=== PATIENT | female | born 1985 | race Two or more races ===

== ENCOUNTER 2021-06-22 19:03 | Inpatient (IN) | payer MEDICAID, OTHER ==
[~2021-06-22] VITALS: Ht 160 cm; Wt 98.1 kg
[2021-06-22] MEDS ORDERED: CATHFLO ACTIVASE (ALTEPLASE) 2 MG VIAL IV ONE ×2 (19:25→19:30)
[2021-06-22 20:09] LABS: Basophils # (auto) 0 10 ^3/uL (0-0.2); Basophils % (auto) 0.5 % (0.0-2.0); Eosinophils # (auto) 0.5 10 ^3/uL (0-0.8); Eosinophils % (auto) 5.5 % (0.0-7.0); Hematocrit 35.1 % (36.0-46.0); Hemoglobin 11.7 g/dL (12.2-16.2); Lymphocytes # (auto) 0.9 10 ^3/uL (0.4-5.4); Lymphocytes % (auto) 9.2 % (10.0-50.0); Mean Corpuscular Hemoglobin 27.9 pg (28.0-32.0); Mean Corpuscular Hgb Conc. 33.2 g/dL (32.0-36.0); Mean Corpuscular Volume 84.1 fL (80.0-100.0); Monocytes # (auto) 1.1 10 ^3/uL (0-1.3); Monocytes % (auto) 11.7 % (0.0-12.0); Neutrophils % (auto) 73.1 % (37.0-80.0); Nucleated Red Blood Cells % 0.1 %; Red Blood Cells 4.18 10^6/uL (4.0-5.20); Red Cell Distribution Width 15.1 % (11.8-14.3); White Blood Cell 9.6 10^3/uL (4.4-10.8)
[2021-06-22 20:15] LABS: Urine Bacteria NONE SEEN /hpf (None Seen); Urine Blood Negative /uL (Negative); Urine Hyaline Cast FEW /lpf (0 - 2); Urine Specific Gravity 1.016 (1.001-1.035); Urine WBC 42 /hpf (0 - 5)
[2021-06-22] MEDS ORDERED: GLUCAGON HYDROCHLORIDE (RDNA) 1 MG VIAL IV ONE (20:15)
[2021-06-22 20:23] LABS: INR 0.99 (0.9-1.15); Partial Thromboplastin Time 23.6 sec (23.6-33.0)
[2021-06-22 20:26] LABS: Albumin 4.1 g/dL (3.4-5.0); Calcium 8.7 mg/dL (8.5-10.1); Magnesium 3.2 mg/dL (1.6-2.6); Potassium 4.2 mmol/L (3.5-5.1)
[2021-06-22 20:27] LABS: Amphetamine Screen, Urine NEGATIVE (NEGATIVE); Barbiturate Scree,Urine NEGATIVE (NEGATIVE); Benzodiazephine Screen, Urine NEGATIVE (NEGATIVE); Cannabinoid Screen, Urine NEGATIVE (NEGATIVE); Cocaine Screen, Urine NEGATIVE (NEGATIVE); Opiate Scree,Urine POSITIVE (NEGATIVE); Phencyclidine Screen, Urine NEGATIVE (NEGATIVE)
[2021-06-22] MEDS ORDERED: FLUMAZENIL 0.1 MG/ML INJ 10ML MDV IV ONE (20:30)
[2021-06-22] MEDS ORDERED: cefTRIAXone 1GM/50ML D5W 50 ML IV ONE (20:30)
[2021-06-22 20:32] LABS: BUN/Creatinine Ratio 20.6; Bilirubin, Total 0.3 mg/dL (0.2-1.0); Total Protein 8.8 g/dL (6.4-8.2)
[2021-06-22] MEDS ORDERED: IOHEXOL 350 MG/ML 100ML IJ ONE (21:13)
[2021-06-22] MEDS ORDERED: HEPARIN SODIUM (PORCINE) 5000 UNITS/ML 1ML VIAL IV ONE (22:30)
[2021-06-22] MEDS ORDERED: HEPARIN DRIP/D5W 100UNITS/ML 250 ML IV ONE (22:37)
[2021-06-22] MEDS: HEPARIN DRIP/D5W 100UNITS/ML 250 ML IV SCH (22:40)
[2021-06-23] MEDS ORDERED: SODIUM CHLORIDE 0.9% 1,000 ML IV ONE ×2 (05:15)
[2021-06-23 05:19] LABS: INR 1.06 (0.9-1.15)
[2021-06-23 05:24] LABS: Partial Thromboplastin Time > 139.0 sec (23.6-33.0)
[2021-06-23] MEDS ORDERED: ONDANSETRON HCL 4 MG/2 ML VIAL IV PRN (05:30)
[2021-06-23] MEDS ORDERED: hydrALAZINE HCL 10 MG TAB PO PRN (05:30)
[2021-06-23] MEDS ORDERED: MORPHINE SULFATE INJECTION 2 MG/ML SYRG IV PRN (05:30)
[2021-06-23] MEDS ORDERED: ACETAMINOPHEN 325 MG TAB PO PRN (05:30)
[2021-06-23] MEDS: cefTRIAXone 1GM/50ML D5W 50 ML IV SCH (09:21)
[2021-06-23 13:00] VITALS: BP 160/74
[2021-06-23] MEDS: HYDROcodone-ACET 5/325MG TAB PO PRN ×2 (13:29→20:37)
[2021-06-23] MEDS: HEPARIN DRIP/D5W 100UNITS/ML 250 ML IV SCH ×3 (14:37→22:31)
[2021-06-23 14:54] LABS: INR 1.05 (0.9-1.15); Partial Thromboplastin Time 52.1 sec (23.6-33.0)
[2021-06-23 17:00] VITALS: BP 139/80
[2021-06-23 21:57] LABS: INR 1.05 (0.9-1.15); Partial Thromboplastin Time 37.5 sec (23.6-33.0)
[2021-06-23 21:58] VITALS: BP 164/78
[2021-06-23] MEDS: MORPHINE SULFATE INJECTION 2 MG/ML SYRG IV PRN (22:55)
[2021-06-24] MEDS: HYDROcodone-ACET 5/325MG TAB PO PRN ×2 (04:02→11:26)
[2021-06-24 05:00] VITALS: BP 150/72
[2021-06-24 06:48] LABS: Basophils # (auto) 0 10 ^3/uL (0-0.2); Basophils % (auto) 0.9 % (0.0-2.0); Eosinophils # (auto) 0.2 10 ^3/uL (0-0.8); Eosinophils % (auto) 3.7 % (0.0-7.0); Hemoglobin 11.9 g/dL (12.2-16.2); Lymphocytes % (auto) 19.1 % (10.0-50.0); Mean Corpuscular Hemoglobin 28.4 pg (28.0-32.0); Mean Corpuscular Volume 83.5 fL (80.0-100.0); Monocytes # (auto) 0.7 10 ^3/uL (0-1.3); Monocytes % (auto) 13.2 % (0.0-12.0); Neutrophils # (auto) 3.2 10 ^3/uL (1.6-8.6); Neutrophils % (auto) 63.1 % (37.0-80.0); Nucleated Red Blood Cells % 0.1 %; Red Blood Cells 4.19 10^6/uL (4.0-5.20); Red Cell Distribution Width 15.5 % (11.8-14.3)
[2021-06-24 06:54] LABS: INR 1.05 (0.9-1.15)
[2021-06-24 07:01] LABS: BUN/Creatinine Ratio 21.6; Potassium 3.9 mmol/L (3.5-5.1)
[2021-06-24] MEDS: HEPARIN DRIP/D5W 100UNITS/ML 250 ML IV SCH (07:20)
[2021-06-24 09:00] VITALS: BP 147/74
[2021-06-24] MEDS: cefTRIAXone 1GM/50ML D5W 50 ML IV SCH (09:00)
[2021-06-24 12:34] VITALS: BP 135/74
[2021-06-24 13:46] LABS: INR 1.06 (0.9-1.15); Partial Thromboplastin Time 60.2 sec (23.6-33.0)
[2021-06-24] MEDS: MORPHINE SULFATE INJECTION 2 MG/ML SYRG IV PRN (15:30)
[2021-06-24 16:41] VITALS: BP 149/73
[2021-06-24] MEDS ORDERED: WARFARIN SODIUM 10 MG TAB PO ONE (17:00)
[2021-06-24] MEDS ORDERED: TRAZ300T16 PO (17:47)
[2021-06-24] MEDS ORDERED: diphenhdrAMINE HCL 25 MG CAP PO ONE (19:15)
[2021-06-24 19:43] LABS: INR 1.04 (0.9-1.15); Partial Thromboplastin Time 60.3 sec (23.6-33.0)
[2021-06-24] MEDS ORDERED: MAGNESIUM SULFATE 1GM/100ML 100 ML IV SCH (21:00)
[2021-06-24 22:00] VITALS: BP 148/71
[2021-06-24] MEDS ORDERED: traZODone HCL 50 MG TAB PO SCH ×2 (22:00)
[2021-06-25] MEDS: MORPHINE SULFATE INJECTION 2 MG/ML SYRG IV PRN ×3 (00:37→15:37)
[2021-06-25 01:42] LABS: INR 1.1 (0.9-1.15)
[2021-06-25 02:10] LABS: Partial Thromboplastin Time 70.9 sec (23.6-33.0)
[2021-06-25 05:00] VITALS: BP 118/81
[2021-06-25 05:25] LABS: Basophils # (auto) 0.1 10 ^3/uL (0-0.2); Basophils % (auto) 0.9 % (0.0-2.0); Eosinophils # (auto) 0.2 10 ^3/uL (0-0.8); Eosinophils % (auto) 3.2 % (0.0-7.0); Hematocrit 32.8 % (36.0-46.0); Hemoglobin 11.3 g/dL (12.2-16.2); Lymphocytes % (auto) 16.9 % (10.0-50.0); Mean Corpuscular Hemoglobin 28.8 pg (28.0-32.0); Mean Corpuscular Hgb Conc. 34.5 g/dL (32.0-36.0); Mean Corpuscular Volume 83.4 fL (80.0-100.0); Monocytes # (auto) 0.9 10 ^3/uL (0-1.3); Monocytes % (auto) 14.8 % (0.0-12.0); Neutrophils # (auto) 3.7 10 ^3/uL (1.6-8.6); Neutrophils % (auto) 64.2 % (37.0-80.0); Nucleated Red Blood Cells % 0.1 %; Red Blood Cells 3.93 10^6/uL (4.0-5.20); Red Cell Distribution Width 14.9 % (11.8-14.3); White Blood Cell 5.8 10^3/uL (4.4-10.8)
[2021-06-25] MEDS: HEPARIN DRIP/D5W 100UNITS/ML 250 ML IV SCH (07:05)
[2021-06-25 07:51] LABS: Chloride 105 mmol/L (98-107); Potassium 3.6 mmol/L (3.5-5.1); Sodium 139 mmol/L (136-145)
[2021-06-25 07:52] LABS: Anion Gap 12 (5-15); BUN/Creatinine Ratio 16.4; Blood Urea Nitrogen 11 mg/dL (7-18); Calcium 8.5 mg/dL (8.5-10.1); Carbon Dioxide 22 mmol/L (21-32); GFR African American 129 mL/min; GFR Non-African American 106 mL/min; Glucose 91 mg/dL (74-106)
[2021-06-25] MEDS: cefTRIAXone 1GM/50ML D5W 50 ML IV SCH (08:23)
[2021-06-25 09:29] VITALS: BP 134/69
[2021-06-25] MEDS ORDERED: WARF5TAB71 PO (14:34)
[2021-06-25] MEDS ORDERED: ENO100SY SC (14:34)
[2021-06-25] MEDS ORDERED: AMOX-277 PO (14:34)
[2021-06-25 14:53] VITALS: BP 137/63
[2021-06-25 15:37] VITALS: BP 137/63
[2021-06-25] MEDS ORDERED: WARFARIN SODIUM 10 MG TAB PO ONE (17:00)
[2021-06-25] MEDS ORDERED: WARFARIN SODIUM 2.5 MG TAB PO ONE (17:00)
== END 2021-06-25 15:38 | disposition home health service (06) | DRG 52 ==
LOC: EDBD 19:03 → ER 19:06 → TELE 06-23 09:27 → TELE-CENTR 06-23 12:52
PROVIDERS: ADMIT Nurse Practitioner Family; ATTEND Internal Medicine
DX: G93.41 Metabolic encephalopathy (principal); I26.99 Other pulmonary embolism without acute cor pulmonale; E66.01 Morbid (severe) obesity due to excess calories; G89.29 Other chronic pain; J98.11 Atelectasis; K50.90 Crohn's disease, unspecified, without complications; N39.0 Urinary tract infection, site not specified; I10 Essential (primary) hypertension; M54.50 Low back pain, unspecified; Z20.822 Contact with and (suspected) exposure to COVID-19; R00.1 Bradycardia, unspecified; R55 Syncope and collapse; N83.201 Unspecified ovarian cyst, right side; Z80.41 Family history of malignant neoplasm of ovary; Z82.49 Family history of ischemic heart disease and other diseases of the circulatory system; Z82.5 Family history of asthma and other chronic lower respiratory diseases; Z68.33 Body mass index [BMI] 33.0-33.9, adult; Z88.1 Allergy status to other antibiotic agents; Z86.718 Personal history of other venous thrombosis and embolism
CPT/HCPCS: 36415; 36600; 70450; 70551; 71045; 71275; 74176; 80048; 80053; 80307; 81001; 82805; 83605; 83735; 84484; 84702; 85025; 85610; 85730; 86141; 86850; 86900; 86901; 87040; 87086; 87088; 87186; 87426; 93005; 93306; 93970; 96365; 96375; 99291; G0378; J0696

== ENCOUNTER 2021-07-28 15:25 | Inpatient (IN) | payer MEDICAID ==
[~2021-07-28] VITALS: Ht 162.6 cm; Wt 92.0 kg
[~2021-07-28 15:25] MED LIST: AMOX-277 PO; ENO100SY SC; TRAZ300T16 PO; WARF5TAB71 PO
[2021-07-28] MEDS ORDERED: ACETAMINOPHEN 325 MG TAB PO ONE (15:45)
[2021-07-28] MEDS ORDERED: SODIUM CHLORIDE 0.9% 1,000 ML IV ONE (15:45)
[2021-07-28] MEDS ORDERED: NOREPINEPHRINE 8 MG/250ML KIT 250 ML IV SCH ×2 (16:30→18:45)
[2021-07-28] MEDS ORDERED: NOREPINEPHRINE 8 MG/250ML KIT 250 ML IV ONE (16:34)
[2021-07-28 17:01] LABS: Basophils # (auto) 0.1 10 ^3/uL (0-0.2); Basophils % (auto) 1.4 % (0.0-2.0); Eosinophils # (auto) 0 10 ^3/uL (0-0.8); Eosinophils % (auto) 0.5 % (0.0-7.0); Hematocrit 29.3 % (36.0-46.0); Hemoglobin 9.8 g/dL (12.2-16.2); Lymphocytes # (auto) 0.3 10 ^3/uL (0.4-5.4); Lymphocytes % (auto) 3.2 % (10.0-50.0); Mean Corpuscular Hemoglobin 27.3 pg (28.0-32.0); Mean Corpuscular Hgb Conc. 33.3 g/dL (32.0-36.0); Mean Corpuscular Volume 81.9 fL (80.0-100.0); Monocytes # (auto) 1.3 10 ^3/uL (0-1.3); Monocytes % (auto) 13.5 % (0.0-12.0); Neutrophils # (auto) 7.8 10 ^3/uL (1.6-8.6); Neutrophils % (auto) 81.4 % (37.0-80.0); Red Blood Cells 3.58 10^6/uL (4.0-5.20); Red Cell Distribution Width 15.6 % (11.8-14.3); White Blood Cell 9.6 10^3/uL (4.4-10.8)
[2021-07-28] MEDS ORDERED: IOHEXOL 350 MG/ML 100ML IJ ONE (17:06)
[2021-07-28 17:19] LABS: Calcium 8.1 mg/dL (8.5-10.1); Potassium 3.9 mmol/L (3.5-5.1)
[2021-07-28 17:22] LABS: BUN/Creatinine Ratio 12.3
[2021-07-28 17:23] LABS: Albumin 2.9 g/dL (3.4-5.0)
[2021-07-28 17:25] LABS: Bilirubin, Total 1.8 mg/dL (0.2-1.0); Total Protein 6.6 g/dL (6.4-8.2)
[2021-07-28] MEDS ORDERED: MORPHINE SULFATE INJECTION 2 MG/ML SYRG IV PRN (18:30)
[2021-07-28] MEDS ORDERED: NITROGLYCERIN 0.4 MG SL TAB SL PRN (18:30)
[2021-07-28] MEDS ORDERED: ACETAMINOPHEN 325 MG TAB PO PRN (18:30)
[2021-07-28] MEDS ORDERED: VANCOMYCIN PER PHARMACY 0 MG IV SCH (18:30)
[2021-07-28] MEDS ORDERED: VANCOMYCIN 1GM/250ML 250 ML IV ONE (19:00)
[2021-07-28] MEDS ORDERED: CEFTRIAXONE SODIUM 2 GM in D5W 5% 50 ML IV SCH (20:30)
[2021-07-28] MEDS ORDERED: ACYCLOVIR 10MG/KG Q8HR PER RX 0 ML IV SCH (20:30)
[2021-07-28] MEDS ORDERED: DexAMETHasone INJECTION 10 MG in D5W 5% 50 ML IV ONE (21:00)
[2021-07-28] MEDS ORDERED: DexAMETHasone SOD PHOS 10MG/1ML VIAL INJ ONE (21:27)
[2021-07-28] MEDS: SODIUM CHLORIDE 0.9% 1,000 ML IV SCH (22:13)
[2021-07-28] MEDS ORDERED: cefTRIAXone 1GM/50ML D5W 100 ML IV ONE (22:59)
[2021-07-28] MEDS ORDERED: ACYCLOVIR SODIUM (50 MG/ ML) 10 ML VIAL IV ONE (23:01)
[2021-07-28] MEDS: ACYCLOVIR SOD 50MG/ML 500 MG in D5W 5% 100 ML IV SCH (23:40)
[2021-07-28] MEDS: CEFTRIAXONE SODIUM 2 GM in D5W 5% 50 ML IV SCH (23:55)
[2021-07-29 00:05] LABS: INR 5.16 (0.9-1.15)
[2021-07-29] MEDS: MORPHINE SULFATE INJECTION 2 MG/ML SYRG IV PRN ×2 (02:26→08:48)
[2021-07-29] MEDS: SODIUM CHLORIDE 0.9% 1,000 ML IV SCH ×2 (02:30→10:07)
[2021-07-29] MEDS: ACYCLOVIR SOD 50MG/ML 500 MG in D5W 5% 100 ML IV SCH (07:03)
[2021-07-29 07:25] LABS: Basophils # (auto) 0 10 ^3/uL (0-0.2); Basophils % (auto) 0.2 % (0.0-2.0); Eosinophils # (auto) 0 10 ^3/uL (0-0.8); Hematocrit 31.2 % (36.0-46.0); Hemoglobin 10.2 g/dL (12.2-16.2); Lymphocytes # (auto) 0.5 10 ^3/uL (0.4-5.4); Lymphocytes % (auto) 5.2 % (10.0-50.0); Mean Corpuscular Hemoglobin 27.1 pg (28.0-32.0); Mean Corpuscular Hgb Conc. 32.6 g/dL (32.0-36.0); Mean Corpuscular Volume 83.1 fL (80.0-100.0); Monocytes # (auto) 0.3 10 ^3/uL (0-1.3); Neutrophils # (auto) 9.7 10 ^3/uL (1.6-8.6); Neutrophils % (auto) 91.6 % (37.0-80.0); Red Blood Cells 3.75 10^6/uL (4.0-5.20); White Blood Cell 10.6 10^3/uL (4.4-10.8)
[2021-07-29 07:42] LABS: Calcium 8.3 mg/dL (8.5-10.1)
[2021-07-29] MEDS ORDERED: ONDANSETRON HCL 4 MG/2 ML VIAL IV PRN (09:00)
[2021-07-29] MEDS ORDERED: DULO60CA PO (09:24)
[2021-07-29] MEDS ORDERED: HYDR-4072 PO (09:24)
[2021-07-29] MEDS ORDERED: TIZA4CAP7 PO (09:24)
[2021-07-29] MEDS ORDERED: MIDO2.5T3 PO (09:24)
[2021-07-29] MEDS ORDERED: ATEN-60 PO (09:24)
[2021-07-29] MEDS ORDERED: GABA100C9 PO (09:24)
[2021-07-29] MEDS: CEFTRIAXONE SODIUM 2 GM in D5W 5% 50 ML IV SCH (10:12)
[2021-07-29] MEDS: HYDROmorphone HCL 2 MG/ML VL IV PRN ×6 (10:32→21:44)
[2021-07-29 11:17] LABS: Urine Bacteria NONE SEEN /hpf (None Seen); Urine Blood 1+ /uL (Negative); Urine Specific Gravity 1.023 (1.001-1.035); Urine WBC 41 /hpf (0 - 5)
[2021-07-29 13:00] VITALS: BP 124/78
[2021-07-29 14:05] VITALS: BP 124/78
[2021-07-29 14:48] LABS: BUN/Creatinine Ratio 13.4; Calcium 8.7 mg/dL (8.5-10.1); Potassium 3.8 mmol/L (3.5-5.1)
[2021-07-29] MEDS ORDERED: VANCOMYCIN 1GM/250ML 250 ML IV SCH (15:30)
[2021-07-29 17:00] VITALS: BP 142/71
[2021-07-29] MEDS: PANTOPRAZOLE 40 MG/10 ML VIAL INJ IV SCH ×2 (22:00)
[2021-07-29] MEDS: ATORVASTATIN 20 MG TAB PO SCH (22:34)
[2021-07-30] MEDS: PIPERACILLIN-TAZOB 3.375GM 100 ML IV SCH ×5 (00:01→18:11)
[2021-07-30] MEDS: HYDROmorphone HCL 2 MG/ML VL IV PRN ×7 (00:34→22:13)
[2021-07-30] MEDS: SODIUM CHLORIDE 0.9% 1,000 ML IV SCH ×2 (03:15→14:15)
[2021-07-30 09:00] VITALS: BP 122/62
[2021-07-30] MEDS: ASPirin 81 mg TAB PO SCH (09:53)
[2021-07-30] MEDS: ONDANSETRON HCL 4 MG/2 ML VIAL IV PRN ×2 (11:58→16:51)
[2021-07-30 13:00] VITALS: BP 105/62
[2021-07-30] MEDS ORDERED: OMNIPAQUE ORAL SOLN 500ml 12mg/ml PO ONE (14:37)
[2021-07-30 17:00] VITALS: BP 121/68
[2021-07-30 17:15] LABS: Eosinophils # (auto) 0.2 10 ^3/uL (0-0.8); Hemoglobin 8.8 g/dL (12.2-16.2); Lymphocytes # (auto) 1.1 10 ^3/uL (0.4-5.4)
[2021-07-30 17:16] LABS: Basophils # (auto) 0 10 ^3/uL (0-0.2); Basophils % (auto) 0.3 % (0.0-2.0); Eosinophils % (auto) 1.8 % (0.0-7.0); Hematocrit 26.1 % (36.0-46.0); Lymphocytes % (auto) 13.9 % (10.0-50.0); Mean Corpuscular Hemoglobin 27.1 pg (28.0-32.0); Mean Corpuscular Hgb Conc. 33.7 g/dL (32.0-36.0); Mean Corpuscular Volume 80.4 fL (80.0-100.0); Monocytes % (auto) 12.3 % (0.0-12.0); Neutrophils # (auto) 5.9 10 ^3/uL (1.6-8.6); Neutrophils % (auto) 71.7 % (37.0-80.0); Red Blood Cells 3.24 10^6/uL (4.0-5.20); Red Cell Distribution Width 15.9 % (11.8-14.3); White Blood Cell 8.2 10^3/uL (4.4-10.8)
[2021-07-30 18:01] LABS: INR 5.92 (0.9-1.15)
[2021-07-30] MEDS ORDERED: IOHEXOL 300 MG/ML 100ML BOTTLE IJ ONE (18:56)
[2021-07-30 22:00] VITALS: BP 110/57
[2021-07-30] MEDS: PANTOPRAZOLE 40 MG/10 ML VIAL INJ IV SCH (22:16)
[2021-07-30] MEDS: ATORVASTATIN 20 MG TAB PO SCH (22:18)
[2021-07-31] MEDS: PIPERACILLIN-TAZOB 3.375GM 100 ML IV SCH ×4 (00:30→18:31)
[2021-07-31] MEDS: HYDROmorphone HCL 2 MG/ML VL IV PRN ×7 (01:04→22:40)
[2021-07-31 05:00] VITALS: BP 134/75
[2021-07-31 09:00] VITALS: BP 123/76
[2021-07-31] MEDS: ASPirin 81 mg TAB PO SCH (10:05)
[2021-07-31 13:00] VITALS: BP 131/66
[2021-07-31 13:21] LABS: INR 3.66 (0.9-1.15)
[2021-07-31] MEDS: SODIUM CHLORIDE 0.9% 1,000 ML IV SCH (16:23)
[2021-07-31 17:00] VITALS: BP 128/75
[2021-07-31 22:00] VITALS: BP 121/74
[2021-07-31] MEDS: PANTOPRAZOLE 40 MG/10 ML VIAL INJ IV SCH (22:00)
[2021-07-31] MEDS: ATORVASTATIN 20 MG TAB PO SCH (22:00)
[2021-08-01] MEDS: HYDROmorphone HCL 2 MG/ML VL IV PRN ×8 (00:15→23:46)
[2021-08-01] MEDS: PIPERACILLIN-TAZOB 3.375GM 100 ML IV SCH ×4 (00:25→17:58)
[2021-08-01 05:00] VITALS: BP 104/52
[2021-08-01 09:46] LABS: INR 2.5 (0.9-1.15); Partial Thromboplastin Time 45.1 sec (23.6-33.0)
[2021-08-01] MEDS: ASPirin 81 mg TAB PO SCH (09:50)
[2021-08-01] MEDS: SODIUM CHLORIDE 0.9% 1,000 ML IV SCH (15:21)
[2021-08-01] MEDS ORDERED: WARFARIN SODIUM 2.5 MG TAB PO ONE (17:00)
[2021-08-01 22:00] VITALS: BP 118/74
[2021-08-01] MEDS: PANTOPRAZOLE 40 MG/10 ML VIAL INJ IV SCH (22:00)
[2021-08-01] MEDS: ATORVASTATIN 20 MG TAB PO SCH (22:29)
[2021-08-02] MEDS: PIPERACILLIN-TAZOB 3.375GM 100 ML IV SCH ×2 (00:16→06:00)
[2021-08-02] MEDS: SODIUM CHLORIDE 0.9% 1,000 ML IV SCH ×2 (01:15→11:15)
[2021-08-02] MEDS: HYDROmorphone HCL 2 MG/ML VL IV PRN ×4 (04:52→16:13)
[2021-08-02 08:45] LABS: INR 2.27 (0.9-1.15); Partial Thromboplastin Time 39.9 sec (23.6-33.0)
[2021-08-02 09:00] VITALS: BP 149/97
[2021-08-02] MEDS: ASPirin 81 mg TAB PO SCH (09:26)
[2021-08-02] MEDS ORDERED: CEFTRIAXONE SODIUM 2 GM in D5W 5% 50 ML IV SCH (11:15)
[2021-08-02] MEDS ORDERED: HYDR-4072 PO (11:20)
[2021-08-02 12:00] VITALS: BP 136/76
[2021-08-02 15:14] VITALS: BP 136/76
[2021-08-02 16:13] VITALS: BP 151/78
[2021-08-02] MEDS ORDERED: WARFARIN SODIUM 2.5 MG TAB PO ONE (17:00)
== END 2021-08-02 18:00 | disposition home health service (06) | DRG 720 ==
LOC: EDBD 15:25 → ER 15:25 → OVERFLOW 18:24 → TELE-CENTR 07-29 11:55
PROVIDERS: ADMIT Nurse Practitioner Family; ATTEND Nurse Practitioner Family
DX: A41.50 Gram-negative sepsis, unspecified (principal); R65.21 Severe sepsis with septic shock; G93.41 Metabolic encephalopathy; E43 Unspecified severe protein-calorie malnutrition; G93.1 Anoxic brain damage, not elsewhere classified; D68.9 Coagulation defect, unspecified; E86.0 Dehydration; F41.9 Anxiety disorder, unspecified; G89.4 Chronic pain syndrome; B96.1 Klebsiella pneumoniae [K. pneumoniae] as the cause of diseases classified elsewhere; Z20.822 Contact with and (suspected) exposure to COVID-19; E27.9 Disorder of adrenal gland, unspecified; I10 Essential (primary) hypertension; R55 Syncope and collapse; K43.9 Ventral hernia without obstruction or gangrene; Z79.01 Long term (current) use of anticoagulants; Z80.41 Family history of malignant neoplasm of ovary; Z82.49 Family history of ischemic heart disease and other diseases of the circulatory system; Z82.5 Family history of asthma and other chronic lower respiratory diseases; Z83.3 Family history of diabetes mellitus; Z86.711 Personal history of pulmonary embolism; Z86.718 Personal history of other venous thrombosis and embolism; Z88.1 Allergy status to other antibiotic agents
CPT/HCPCS: 36415; 70450; 71275; 74177; 76830; 76856; 80048; 80053; 81001; 81025; 83605; 83690; 84484; 84702; 85025; 85379; 85610; 85730; 87040; 87077; 87186; 87426; 93005; 93306; 95819; 96365; 96366; 96367; 96375; C9113; G0378; J0696; J1100; J2405; J2543; J7060

== ENCOUNTER 2021-11-23 20:32 | Emergency (ER) | payer MEDICAID ==
[~2021-11-23] VITALS: Ht 162.6 cm; Wt 81.6 kg
[~2021-11-23 20:32] MED LIST changes: -AMOX-277 PO; +ATEN-60 PO; +DULO60CA PO; -ENO100SY SC; +GABA100C9 PO; +MIDO2.5T3 PO; +TIZA4CAP7 PO; -WARF5TAB71 PO
[2021-11-23 20:47] VITALS: BP 125/62
== END 2021-11-23 22:42 | disposition left against medical advice (07) ==
LOC: ER 20:32
DX: R10.30 Lower abdominal pain, unspecified (principal); R11.2 Nausea with vomiting, unspecified; R94.31 Abnormal electrocardiogram [ECG] [EKG]; Z53.21 Procedure and treatment not carried out due to patient leaving prior to being seen by health care provider
CPT/HCPCS: 93005

== ENCOUNTER 2023-12-27 08:56 | Emergency (ER) | payer MEDICAID ==
[~2023-12-27] VITALS: Ht 167.6 cm; Wt 81.4 kg
[~2023-12-27 08:56] MED LIST changes: -DULO60CA PO; +DULO60CA41 PO; +GABA-1308 PO; -GABA100C9 PO
[2023-12-27 10:49] VITALS: BP 128/82; PULSE 69; RESP 18; TEMP 98.4; O2SAT 100
== END 2023-12-27 10:52 | disposition home or self-care (01) ==
LOC: ER 08:56
DX: Z45.2 Encounter for adjustment and management of vascular access device (principal); I10 Essential (primary) hypertension; Z88.1 Allergy status to other antibiotic agents; Z90.710 Acquired absence of both cervix and uterus

== ENCOUNTER 2024-11-07 21:00 | Emergency (ER) | payer MEDICAID ==
[~2024-11-07] VITALS: Ht 162.6 cm; Wt 77.2 kg
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
[2024-11-07 22:12] LABS: Basophils # (auto) 0 10 ^3/uL (0-0.2); Basophils % (auto) 0.4 % (0.0-2.0); Eosinophils # (auto) 0 10 ^3/uL (0-0.8); Hematocrit 42.4 % (36.0-46.0); Hemoglobin 14.6 g/dL (12.2-16.2); Lymphocytes # (auto) 0.6 10 ^3/uL (0.4-5.4); Lymphocytes % (auto) 8.9 % (10.0-50.0); Mean Corpuscular Hemoglobin 30.6 pg (28.0-32.0); Mean Corpuscular Hgb Conc. 34.4 g/dL (32.0-36.0); Monocytes # (auto) 0.3 10 ^3/uL (0-1.3); Monocytes % (auto) 4.2 % (0.0-12.0); Neutrophils # (auto) 6.2 10 ^3/uL (1.6-8.6); Neutrophils % (auto) 86.5 % (37.0-80.0); Nucleated Red Blood Cells % 0.6 %; Platelet Count (auto) 384 10^3/uL (140-450); Red Blood Cells 4.76 10^6/uL (4.0-5.20); Red Cell Distribution Width 12.9 % (11.8-14.3); White Blood Cell 7.1 10^3/uL (4.4-10.8)
[2024-11-07 22:28] LABS: INR 0.99 (0.9-1.15); Partial Thromboplastin Time 27.9 SEC (24.5-34.5); Prothrombin Time 10.5 sec (9.3-11.8)
[2024-11-07 22:38] LABS: Alanine Aminotransferase 13 U/L (7-40); Alkaline Phosphatase 88 U/L (46-116); Anion Gap 17 (5-15); Aspartate Aminotransferase 16 U/L (13-40); BUN/Creatinine Ratio 10.6 (10.0-20.0); Calcium 9.8 mg/dL (8.7-10.4); Lipase 48 U/L (12-53); Magnesium 2.1 mg/dL (1.6-2.6); Sodium 145 mmol/L (136-145); Total Protein 7.8 g/dL (5.7-8.2)
[2024-11-07 22:39] LABS: Bilirubin, Total 0.6 mg/dL (0.2-1.0)
[2024-11-07 22:42] LABS: Blood Urea Nitrogen 7 mg/dL (9-23); Carbon Dioxide 18 mmol/L (20-31); Chloride 110 mmol/L (98-107); Glucose 108 mg/dL (74-106); Potassium 3.4 mmol/L (3.5-5.1)
[2024-11-07 22:43] LABS: Albumin 5.3 g/dL (3.2-4.8)
--- NOTE | 2024-11-07 23:27 | DVH ---
Exam: CT CT AB PEL WITH IV CON ONLY History: abd pain, vomiting, h/o hysterectomy and prior abd surgeries Comparison Study: CT ABD PELVIS W CONTRAST on DOS: 07/30/21 Technique: Multidetector spiral CT of the abdomen and pelvis was performed from lung bases to pubic s ymphysis. Intravenous contrast was administered during this examination. Portal venous imaging was o btained. Axial, coronal and sagittal multiplanar reformats were performed by the technologist on a [employer] workstation. Radiation Dose : 1. Abdomen/Pelvis: CTDIvol 17 mGy, DLP 1065 mGy*cm. Findings: Lung Bases: Tree-in-bud nodular opacities seen diffusely bilaterally. Liver: The liver is normal in size. No focal lesions. Normal hepatic vascular enhancement. Gallbladder and Biliary Tree: Unremarkable Spleen: Unremarkable Pancreas: The pancreas is normal in appearance without focal lesions or abnormal enhancement. Adrenal Glands: Unremarkable Kidneys: Kidneys demonstrate normal symmetric enhancement without focal lesions, calculi or hydroneph rosis. Bladder: Unremarkable Bowel: The stomach is grossly normal in appearance. Small bowel and colon are normal in caliber and d istribution. The appendix is not visualized; however, no secondary findings of acute appendicitis mu ntified. Surgical changes of the sigmoid colon. Ascites: Absent Lymphadenopathy: No mesenteric, retroperitoneal or periportal lymphadenopathy. Abdominal Wall and Mesentery: Unremarkable. Vasculature: The visualized abdominal aorta is normal in size and caliber. Vascular stent arising fr om the left common iliac vein extension to the left common femoral vein Pelvic Organs: Hysterectomy. Musculoskeletal: No aggressive focal bony lesions, acute fractures or dislocation. Postsurgical gomez es of the lumbar spine and left ilium. Left lateral abdominal wall defect causing herniation of small bowel and colon. IMPRESSION: No acute abdominal or pelvic finding. Postsurgical changes as detailed above. Tree-in-bud nodular opacities seen diffusely in the bilateral lung bases. This has a broad differenti al which includes infectious processes, congenital disease, or connective tissue disorders .
[2024-11-07 23:59] VITALS: TEMP 99.2; O2SAT 100
[2024-11-07] MEDS ORDERED: CEFD300C2 PO (23:59)
[2024-11-07] MEDS ORDERED: GABA300T4 PO (23:59)
[2024-11-07] MEDS ORDERED: ONDA-180 PO (23:59)
[2024-11-08] VITALS: BP 139/72; PULSE 71; RESP 22
[2024-11-08] MEDS: IOHEXOL 300 MG/ML 100ML BOTTLE IJ ONE
[2024-11-08] MEDS: SODIUM CHLORIDE 0.9% 1,000 ML IVB ONE
[2024-11-08] MEDS: MORPHINE SULFATE 4 MG/ML SYR/VIAL IV ONE
[2024-11-08] MEDS: ONDANSETRON HCL 4 MG/2 ML VIAL IV ONE
[2024-11-08] MEDS: cefTRIAXone 1GM/50ML D5W 50 ML IV ONE (00:12)
== END 2024-11-08 00:20 | disposition home or self-care (01) ==
LOC: ER 21:00 → EDBD 21:00 → ER 11-08 00:20
DX: R10.32 Left lower quadrant pain (principal); R19.7 Diarrhea, unspecified; I10 Essential (primary) hypertension; D64.9 Anemia, unspecified; Z79.899 Other long term (current) drug therapy; Z86.711 Personal history of pulmonary embolism; Z86.718 Personal history of other venous thrombosis and embolism; Z87.11 Personal history of peptic ulcer disease; Z90.710 Acquired absence of both cervix and uterus; Z88.0 Allergy status to penicillin; Z88.1 Allergy status to other antibiotic agents; Z88.5 Allergy status to narcotic agent; V89.2XXA Person injured in unspecified motor-vehicle accident, traffic, initial encounter; Y93.89 Activity, other specified; Y92.89 Other specified places as the place of occurrence of the external cause; Y99.8 Other external cause status
CPT/HCPCS: 36415; 74177; 80053; 83690; 83735; 85025; 85610; 85730; 96374; 96375; 99285; J0696; J2270; J2405; J7030; Q9967